=== PATIENT | female | born 1990 | race African-American/Black ===

== ENCOUNTER 2023-12-31 06:05 | Inpatient (IN) | payer OTHER ==
[2023-12-31 06:44] VITALS: BMI 34.4
[2023-12-31] MEDS: ELECTROLYTE-148 SOLN 500 ML IV ONE (06:56)
[2023-12-31] MEDS: ELECTROLYTE-148 SOLN 1,000 ML IV SCH (06:56)
[2023-12-31] MEDS ORDERED: FENTANYL CITRATE/PF 50 MCG/ML VIAL ONE (07:44)
[2023-12-31] MEDS ORDERED: morphine SULFATE/PF 1 MG/2 ML (2cc Syringe - QUVA) ONE (07:44)
[2023-12-31] MEDS: CITRIC ACID/SODIUM CITRATE 30 ML UNIT-DOSE CUP PO ONE (07:50)
[2023-12-31] MEDS ORDERED: ONDANSETRON 4 MG/2 ML VIAL ONE ×2 (08:26→08:28)
[2023-12-31] MEDS ORDERED: OXYTOCIN 10 UNITS/ML VIAL ONE (08:29)
[2023-12-31] MEDS ORDERED: OXYTOCIN 20 UNITS in 0.9% NS 20 UNIT/1,000 ML INFUS.BAG IV ONE (09:33)
[2023-12-31] MEDS ORDERED: METHYLERGONOVINE MALEATE 0.2 MG/1 ML AMP IM PRN (09:54)
[2023-12-31] MEDS ORDERED: ACETAMINOPHEN 325 MG TABLET (FP) PO PRN (09:54)
[2023-12-31] MEDS ORDERED: LABETALOL HCL 200 MG TABLET (FP) ONE (10:46)
[2023-12-31] MEDS: LABETALOL HCL 200 MG TABLET (FP) PO SCH (11:00)
[2023-12-31] MEDS: OXYTOCIN 20 UNITS in 0.9% NS 20 UNIT/1,000 ML INFUS.BAG IV SCH (11:07)
[2023-12-31] MEDS ORDERED: BUPIVACAINE 0.75% IN DEXTROSE/PF 2ML AMPULE NR ONE (11:29)
[2023-12-31] MEDS: IBUPROFEN 800 MG/8 ML IJ IVPB PRN (14:32)
[2023-12-31] MEDS ORDERED: oxyCODONE HCL 5 MG TABLET PO PRN ×2 (21:54)
[2023-12-31] MEDS: SIMETHICONE 80 MG TAB.CHEW (FP) PO PRN (22:10)
[2024-01-01] MEDS ORDERED: BISACODYL 10 MG SUPP.RECT RC PRN (09:54)
[2024-01-01] MEDS: PRENATAL VITAMINS W/ FOLIC ACID TABLET (FP) PO SCH (09:56)
[2024-01-01] MEDS: FERROUS SO4 325 MG TABLET (FP) PO SCH (09:56)
[2024-01-01 11:41] LABS: BASO % 0.9 % (0-2.0); EOS % 0.7 % (0-4.5); HEMATOCRIT 34.3 % (32.4-45.2); HEMOGLOBIN 11.2 GM/dL (10.7-15.3); LYMPH % 13.5 % (8-40); MCH 28.6 pg (25.7-33.7); MCHC 32.7 g/dl (32.0-36.0); MEAN CELL VOLUME 87.4 fl (80-96); MEAN PLT VOLUME 10.8 fl (7.5-11.1); MONO % 8.1 % (3.8-10.2); NEUT % 76.8 % (42.8-82.8); PLATELET COUNT 174 10^3/uL (134-434); RBC 3.93 M/mm3 (3.60-5.2); WHITE BLOOD COUNT 9.2 K/mm3 (4.0-10.0)
[2024-01-01] MEDS: DIPHTH,PERTUSS(ACELL),TET 0.5 ML DISP.SYRIN IM ONE (16:23)
[2024-01-01] MEDS: IBUPROFEN 600 MG TABLET (FP) PO PRN (17:19)
[2024-01-01] MEDS: SENNOSIDES/DOCUSATE COMBO (SENNA PLUS) TABLET (UD) PO PRN (22:07)
[2024-01-03 06:08] VITALS: RESP 18
[2024-01-03 10:19] VITALS: BP 138/82; PULSE 80; TEMP 98.5
== END 2024-01-03 13:10 | disposition home or self-care (01) | DRG 788 ==
LOC: JLDR 06:05 → J3W 11:55
PROVIDERS: ADMIT Obstetrics & Gynecology; ATTEND Obstetrics & Gynecology
PROC: 10D00Z1 Extraction of Products of Conception, Low, Open Approach (ICD-10-PCS; principal; 2023-12-31)
DX: O14.94 Unspecified pre-eclampsia, complicating childbirth (principal); O13.4 Gestational [pregnancy-induced] hypertension without significant proteinuria, complicating childbirth; O26.893 Other specified pregnancy related conditions, third trimester; M32.9 Systemic lupus erythematosus, unspecified; O69.81X0 Labor and delivery complicated by cord around neck, without compression, not applicable or unspecified; Z3A.39 39 weeks gestation of pregnancy; Z37.0 Single live birth
CPT/HCPCS: 36415; 85025; 86850; 86900; 86901; 88307-TC; 90715